=== PATIENT | male | born 1990 | race American Indian/Alaskan Native ===

== ENCOUNTER 2020-03-22 20:30 | Emergency (ER) | payer SELFPAY ==
[2020-03-23] MEDS ORDERED: ACETAMINOPHEN 325 MG TAB ONE ×2 (01:26→08:45)
[2020-03-23] MEDS ORDERED: HYDROmorphone 1 MG/1 ML INJ IV ONE ×2 (02:40→04:17)
[2020-03-23] MEDS ORDERED: ONDANSETRON 4 MG/2 ML INJ IV ONE (02:40)
[2020-03-23] MEDS ORDERED: ASPIRIN 325 MG TAB PO ONE (02:42)
[2020-03-23] MEDS ORDERED: HYDROGEN PEROXIDE 118 ML SOLUTION ONE (02:54)
--- NOTE | 2020-03-23 03:00 | Emergency Department Report ---
ED Extremity Problem HPI - General Chief complaint: Extremity Problem,Nontraumatic Stated complaint: RIGHT ARM PAIN/BLOOD CLOT AND HURT WHEN PEE Time Seen by Provider: 03/23/20 02:20 Source: patient, old records reviewed Mode of arrival: Ambulatory Limitations: No Limitations - History of Present Illness Initial comments: 29-year-old male with a past medical history of HIV, depression, anxiety, and recent admission here for prostatitis presents to the hospital complaining of continued rectal bleeding, rectal pain, dysuria, and 1 week of right arm pain where previous IV was placed during admission. Patient was admitted here March 04 to March 13 after having 2 weeks of hematochezia, difficulty urinating, severe abdominal pain, and rectal pain. Patient received CT abdomen pelvis as well as colonoscopy with rectal biopsy. CT abdomen pelvis showed rectal inflammation and an enlarged lymph node adjacent to the rectum and his biopsy report shows acute colitis with melanosis coli and negative herpes and CMV. GMS and syphillis is still pending as per discharge summary/note from 03/12. Patient now returns complaining of persistent and increased rectal bleeding. Persistent dysuria. And 1 week of right arm pain, tenderness, and swelling at the vein where previous IV was placed. Patient states he has been taking a spirin and ibuprofen intermittently as well as Percocet 5/325 mg. His pain has not been controlled. He was also prescribed oxycodone ER 20 mg but cannot find a pharmacy that will fill this medication. No complaints of fever. 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 Given high risk sexual behavior, this is most likely STD-associated proctitis, suspicion for lymphogranuloma venereum /Chlamydia or Gonorrhea. Other possibilities herpes type 2 proctitis and syphilitic proctitis, which is rare. S/p colonoscopy on 03/08/2020- findings rectal inflammation and purulence. Biopsy shows mild acute colitis, negative for granulomas, patchy pigment suggesting melanosis coli or lower GI bleed. CMV and HSV stains negative. #Suicidal ideation: Patient stating that "I wants to kill himself if the rectal pain is not better", "I have been thinking on killing myselft". Denies any SI currently. #HIV infection: Uncontrolled, last viral load> 10,000 copies. KQ5=[id number]. Patient is taking Biktarvy, reported missing his medication since admission. He was just started 2 months ago. #History of latent syphilis: incomplete treatment. Syphilis IgG +1:32. #Dysuria: Urinalysis negative. ?Urethritis ? Chlamydia Recommendations: -f/u biopsy stains - GMS and Spirochetes -per micro, [facility] does not process rectal tissue for gonorrhea and chlamydia PCR. Rectal swab was not done due to severe pain. -gonorrhea and chlamydia PCR in urine- pending -Continue ceftriaxone 2 g IV once a day -Continue doxycycline 100 mg PO BID -Continue ART biktarvy equivalent inpatient - emtricitavine/ tenofovir/dolutegravir -Anticipate to d/c once pain is under control hopefully , still severe, reque sting dilaudid for rectal pain - -Anticipate to d/c on doxycycline 100 mg po bid total 3 weeks until 03/26/2020. Received Penicillin benzathine 1.2 mU IM on 03/04 then 1.2 mU on 03/05 then 2.4 IU on 03/11 or 03/12 and needs last on 03/19 at his local [facility] or [facility] (educated multiple times about this) -f/u with [facility] in 2 weeks -pain management per hospitalist Okay to be discharged tomorrow if pain is under control. Patient continues to express his frustration about no having a definite diagnosis, stating that the hospital may have not done enough. I again educated him about everything we have done to get to the bottom of his rectal infection. I recommend to keep him during the weekend consider GI med re-evaluation on Sunday if pain continues to be severe, may consider to collect rectal swab for Rectal swab GC/Chlamydia, which has not been done due to severe pain. I also explained again I have fully treated him for all GC/chlamydia and syphilis. Dr. Gilbert will be covering the weekend, Dr. Lester will be rounding on Sunday. Patient states he was able to receive his last dose of penicillin for latent syphilis on 03/19 with [facility]. Patient's gonorrhea and Chlamydia tests ultimately came back negative however, this appears to be have obtained from the urine since patient was not tolerating rectal swab. As per ID note [facility] does not process rectal tissue for gonorrhea and chlamydia PCR. Patient received Rocephin while admitted as well as doxycycline which was continued upon discharge with plan for 3 total weeks of treatment. Patient states he has been compliant with his doxycycline. Patient's rectal biopsy stains for GMS and spirochetes were pending at disposition however, I do not see a result in the computer. As per patient's labs he was also HSV IgM antibody screen positive and HSV-2 specific antibody of 12.20 but rectal biopsy result were negative for herpes and cmv. Patient was supposed to follow-up with GI however, he was told that GI will be contacting him for an appointment. When he did not hear for them he contacted case management however, issue was not resolved an appointment/follow-up has not been scheduled Patient is also taking the prescribed Baclofen and Ansol as well as other medica tions prescribed for treatment upon recent discharge Pt apparently had verbal and physical conflicts with staff in the waiting room. - Related Data Home Medications Medication Instructions Recorded Confirmed Last Taken Bictegrav/Emtricit/Tenofov Ala 1 tab PO DAILY 03/04/20 03/05/20 03/03/20 17:00 [Biktarvy 50-200-25 mg (Nf)] Previous Rx's Medication Instructions Recorded Last Taken Type Baclofen [Lioresal] 5 mg PO TID #25 tablet 03/13/20 Unknown Rx Clobetasol 0.05% [Temovate] 1 applic TP BID #1 tube 03/13/20 Unknown Rx Docusate Sodium [Colace CAP] 100 mg PO BID #30 capsule 03/13/20 Unknown Rx Hydrocortisone 2.5% [Proctosol-Hc] 1 applic NH Q8H #1 tube 03/13/20 Unknown Rx Sennosides Tab [Senokot] 8.6 mg PO Q12HR #14 tablet 03/13/20 Unknown Rx oxyCODONE /ACETAMINOPHEN [Percocet 1 tab PO Q6H PRN #20 tablet 03/13/20 Unknown Rx 5/325 mg] oxyCODONE ER [oxyCONTIN ER] 20 mg PO 18 #20 tablet 03/13/20 Unknown Rx polyethylene glycoL 3350 [Miralax 17 gm PO QDAY #14 powd.pack 03/13/20 Unknown Rx 3350] Apixaban [Eliquis] 5 mg PO BID #30 tablet 03/23/20 Unknown Rx DOXYCYCLINE Hyclate [Vibramycin 100 mg PO BID #28 tab 03/23/20 Unknown Rx CAP] Oxycodone HCl/Acetaminophen 1 each PO Q6HR PRN #20 tablet 03/23/20 Unknown Rx [Percocet 10/325 mg] Allergies Allergy/AdvReac Type Severity Reaction Status Date / Time latex Allergy Hives Verified 03/03/20 19:42 ED Review of Systems ROS: Stated complaint: RIGHT ARM PAIN/BLOOD CLOT AND HURT WHEN PEE Other details as noted in HPI Comment: All other systems reviewed and negative ED Past Medical Hx - Past Medical History Previous Medical History?: Yes Hx Hypertension: No Hx Heart Attack/AMI: No Hx Deep Vein Thrombosis: No Hx Liver Disease: No Hx Renal Disease: No Hx Psychiatric Treatment: Yes (depression, anxiety) Hx HIV: Yes Additional medical history: herpes I,II, SYPHILLIS - Surgical History Past Surgical History?: Yes Hx Pacemaker: No Hx Internal Defibrillator: No Additional Surgical History: hemorrhoid sx ?2015 - Social History Smoking Status: Never Smoker Substance Use Type: None - Medications Home Medications: Home Medications Medication Instructions Recorded Confirmed Last Taken Type Bictegrav/Emtricit/Tenofov Ala 1 tab PO DAILY 03/04/20 03/05/20 03/03/20 17:00 History [Biktarvy 50-200-25 mg (Nf)] Baclofen [Lioresal] 5 mg PO TID #25 tablet 03/13/20 Unknown Rx Clobetasol 0.05% [Temovate] 1 applic TP BID #1 tube 03/13/20 Unknown Rx Docusate Sodium [Colace CAP] 100 mg PO BID #30 capsule 03/13/20 Unknown Rx Hydrocortisone 2.5% [Proctosol-Hc] 1 applic NH Q8H #1 tube 03/13/20 Unknown Rx Sennosides Tab [Senokot] 8.6 mg PO Q12HR #14 tablet 03/13/20 Unknown Rx oxyCODONE /ACETAMINOPHEN [Percocet 1 tab PO Q6H PRN #20 tablet 03/13/20 Unknown Rx 5/325 mg] oxyCODONE ER [oxyCONTIN ER] 20 mg PO 18 #20 tablet 03/13/20 Unknown Rx polyethylene glycoL 3350 [Miralax 17 gm PO QDAY #14 powd.pack 03/13/20 Unknown Rx 3350] Apixaban [Eliquis] 5 mg PO BID #30 tablet 03/23/20 Unknown Rx DOXYCYCLINE Hyclate [Vibramycin 100 mg PO BID #28 tab 03/23/20 Unknown Rx CAP] Oxycodone HCl/Acetaminophen 1 each PO Q6HR PRN #20 tablet 03/23/20 Unknown Rx [Percocet 10/325 mg] ED Physical Exam - General Limitations: No Limitations ED Course Vital Signs 03/22/20 03/22/20 03/23/20 20:48 21:26 04:51 Temperature 98.0 F 98 F Pulse Rate 98 H 92 H Respiratory 18 18 Rate Blood Pressure 122/71 122/71 134/77 Blood Pressure [Left] O2 Sat by Pulse 98 100 Oximetry 03/23/20 03/23/20 03/23/20 06:34 07:17 07:30 Temperature Pulse Rate 78 Respiratory 16 Rate Blood Pressure 125/75 125/75 Blood Pressure 134/77 [Left] O2 Sat by Pulse 98 98 Oximetry 03/23/20 03/23/20 03/23/20 07:45 08:00 10:26 Temperature Pulse Rate 78 Respiratory 18 Rate Blood Pressure 133/73 133/73 Blood Pressure 133/73 [Left] O2 Sat by Pulse 96 96 97 Oximetry - Consultations Consultation #1: 03/23/20 05:56 Dr Wallis GI doctor. She agrees that patient does not meet criteria at this time. Patient is not anemic or have evidence of leukocytosis or sepsis. Recommend patient follow-up with GI as outpatient 03/23/20 06:[address] Case hung with ID Dr[address] Tenorio. He is familiar with the patient. I informed him that GMS stains are spirochete stains are pending. He states GMS is a fungal stain. Results apparently are not available for review at this time. He recommends additional Rocephin 2 g IV and an extra 2 weeks course of doxycycline and follow-up with his infectious disease doctor. He also states it is very important for him to take his HIV medication ED Medical Decision Making - Lab Data Result diagrams: 03/23/20 Unknown 03/23/20 Unknown Lab Results 03/23/20 03/23/20 03/23/20 Range/Units Unknown Unknown Unknown WBC 7.2 (4.5-11.0) K/mm3 RBC 4.70 (3.65-5.03) M/mm3 Hgb 16.0 H (11.8-15.2) gm/dl Hct 45.6 (35.5-45.6) % MCV 97 H (84-94) fl MCH 34 H (28-32) pg MCHC 35 H (32-34) % RDW 12.8 L (13.2-15.2) % Plt Count 251 (140-440) K/mm3 Lymph % (Auto) 20.1 (13.4-35.0) % [place] % (Auto) 4.2 (0.0-7.3) % Eos % (Auto) 0.2 (0.0-4.3) % Baso % (Auto) 0.3 (0.0-1.8) % Lymph # 1.4 (1.2-5.4) K/mm3 [place] # 0.3 (0.0-0.8) K/mm3 Eos # 0.0 (0.0-0.4) K/mm3 Baso # 0.0 (0.0-0.1) K/mm3 Seg Neutrophils % 75.2 H (40.0-70.0) % Seg Neutrophils # 5.4 (1.8-7.7) K/mm3 PT 24.5 H (12.2-14.9) Sec. INR 2.15 H (0.87-1.13) APTT 80.0 H* (24.2-36.6) Sec. Sodium 137 (137-145) mmol/L Potassium 3.4 L (3.6-5.0) mmol/L Chloride 102.6 (98-107) mmol/L Carbon Dioxide 21 L (22-30) mmol/L Anion Gap 17 mmol/L BUN 10 (9-20) mg/dL Creatinine 0.8 (0.8-1.3) mg/dL Estimated GFR > 60 ml/min BUN/Creatinine Ratio 13 % Glucose 77 (75-100) mg/dL Calcium 8.0 L (8.4-10.2) mg/dL Magnesium (1.7-2.3) mg/dL 03/23/20 Range/Units Unknown WBC (4.5-11.0) K/mm3 RBC (3.65-5.03) M/mm3 Hgb (11.8-15.2) gm/dl Hct (35.5-45.6) % MCV (84-94) fl MCH (28-32) pg MCHC (32-34) % RDW (13.2-15.2) % Plt Count (140-440) K/mm3 Lymph % (Auto) (13.4-35.0) % [place] % (Auto) (0.0-7.3) % Eos % (Auto) (0.0-4.3) % Baso % (Auto) (0.0-1.8) % Lymph # (1.2-5.4) K/mm3 [place] # (0.0-0.8) K/mm3 Eos # (0.0-0.4) K/mm3 Baso # (0.0-0.1) K/mm3 Seg Neutrophils % (40.0-70.0) % Seg Neutrophils # (1.8-7.7) K/mm3 PT (12.2-14.9) Sec. INR (0.87-1.13) APTT (24.2-36.6) Sec. Sodium (137-145) mmol/L Potassium (3.6-5.0) mmol/L Chloride (98-107) mmol/L Carbon Dioxide (22-30) mmol/L Anion Gap mmol/L BUN (9-20) mg/dL Creatinine (0.8-1.3) mg/dL Estimated GFR ml/min BUN/Creatinine Ratio % Glucose (75-100) mg/dL Calcium (8.4-10.2) mg/dL Magnesium 2.30 (1.7-2.3) mg/dL - Radiology Data Radiology results: report reviewed DUPLEX DOPPLER UPPER EXTREMITY VENOUS, RIGHT INDICATION / CLINICAL INFORMATION: RIGHT ARM PAIN. TECHNIQUE: Duplex doppler imaging was performed through the veins of the right upper extremity using venous compression and other maneuvers. COMPARISON: None available. FINDINGS: RIGHT INTERNAL JUGULAR VEIN: Negative. RIGHT SUBCLAVIAN VEIN: Negative. RIGHT AXILLARY VEIN: Negative. RIGHT BRACHIAL VEIN: Acute thrombus. RIGHT FOREARM VEINS: Acute thrombus. RIGHT BASILIC VEIN (SUPERFICIAL): Negative. ADDITIONAL FINDINGS: None. IMPRESSION: 1. Positive for acute nonocclusive thrombus within the right brachial vein. 2. Positive for ac karly occlusive thrombus within the right cephalic vein. 3. Findings were discussed with Dr. Hidalgo by the supervisor rice milling at 9:12 AM. - Medical Decision Making Patient presents to the hospital with persistent rectal bleeding with diagnosis of proctitis. Patient complains of worsening bleeding but he does not have hypotension, tachycardia, or anemia. Patient has received treatment for multiple infections including gonorrhea, chlamydia, and syphilis. Patient also was recently started on HIV medications. Ultimately patient need to follow-up with GI doctor as outpatient as discussed with GI attending personal protection specialist. Patient will also need to follow-up with ID as outpatient. Case discussed with Dr. Tenorio who recommends addition of Rocephin 2 g IV and another 2 weeks of doxycycline. Patient appears to have a high pain tolerance as per medical record review dur ing admission patient was receiving Dilaudid 2 mg doses. He was discharged on Percocet 5/325 mg and oxycodone 20 mg extended release. Patient treated in the ED with Dilaudid and Zofran. Patient developed a mild rash and received Benadryl and Solu-Medrol as well. Patient main complaint of pain is his right arm and he has an area there suggestive of superficial thrombophlebitis. Upper extremity Doppler is not available in the evening. Patient held in the ED to obtain right arm Doppler this a.m. to rule out DVT. Patient signed out to oncoming provider Dr. Hidalgo to follow-up results. Patient will be prepped for discharge with medication prescriptions. Repeat PT/INR is pending Initial sample was inaccurate because to was not filled to the maximum line. Pt is not on anticoagulants Please see Dr Hidalgo note regarding course after signout and dispo pt with + right arm dvt d/cindy on eliquis pt had verbal conflicts with RN and MD Dr Hidalgo prior to d/c (as per chart review) Critical Care Time: No Critical care attestation.: If time is entered above; I have spent that time in minutes in the direct care of this critically ill patient, excluding procedure time. ED Disposition Clinical Impression: HIV (human immunodeficiency virus infection), Proctitis Deep vein thrombosis of right upper extremity Qualifiers: Affected thrombotic vein of extremity: brachial Chronicity: acute Qualified Code(s): I82.621 - Acute embolism and thrombosis of deep veins of right upper extremity Disposition: TO HOME OR SELFCARE Is pt being admited?: No Condition: Stable Instructions: Proctitis (ED), Deep Venous Thrombosis (ED) Additional Instructions: Take the medication as prescribed. Follow-up with your doctor or doctor/clinic provided. Call the numbers provided to schedule follow-up. Follow-up with your infectious disease clinic or the infectious disease doctor provided. Return if symptoms worsen as indicated by your discharge instructions. Prescriptions: Apixaban [Eliquis] 5 mg PO BID #30 tablet Oxycodone HCl/Acetaminophen [Percocet 10/325 mg] 1 each PO Q6HR PRN #20 tablet PRN Reason: Pain DOXYCYCLINE Hyclate [Vibramycin CAP] 100 mg PO BID #28 tab Referrals: MALLORY NIEVES MD [Staff Physician] - 3-5 Days (GI doctor) TK JESUS MD [Staff Physician] - 3-5 Days (Infectious disease.) JORGE CHO MD [Staff Physician] - 3-5 Days Time of Disposition: 10:25
[2020-03-23] MEDS ORDERED: diphenhydrAMINE 50 MG/ML VIAL IV ONE ×2 (04:17→04:39)
[2020-03-23 04:33] LABS: Basophils % (Auto) 0.3 % (0.0-1.8); Eosinophils % (Auto) 0.2 % (0.0-4.3); Hematocrit 45.6 % (35.5-45.6); Lymphocytes # (Auto) 1.4 K/mm3 (1.2-5.4); Lymphocytes % (Auto) 20.1 % (13.4-35.0); Mean Corpuscular HGB Conc 35 % (32-34); Mean Corpuscular Volume 97 fl (84-94); Monocytes # (Auto) 0.3 K/mm3 (0.0-0.8); Monocytes % (Auto) 4.2 % (0.0-7.3); Platelet Count 251 K/mm3 (140-440); Red Cell Distribution Width 12.8 % (13.2-15.2)
[2020-03-23] MEDS ORDERED: NEOMY 3.5 MG/BACIT 400 UNITS/POLY B 5000 UNITS/GM OINT PACKET TP ONE ×2 (04:39→07:13)
[2020-03-23] MEDS ORDERED: methylPREDNISolone Sod Succinate 125 MG/2 ML INJ IV ONE (04:39)
[2020-03-23 04:43] LABS: INR 2.15 (0.87-1.13)
[2020-03-23 04:52] LABS: BUN/Creatinine Ratio 13; Blood Urea Nitrogen 10 mg/dL (9-20); Hemolysis Index 28
[2020-03-23] MEDS ORDERED: POTASSIUM CHLORIDE ER 20 MEQ TAB PO ONE (05:17)
[2020-03-23] MEDS ORDERED: cefTRIAXone/NS 2 GM/100 ML 2 GM/100 ML BAG IV ONE (06:00)
[2020-03-23] MEDS ORDERED: HYDROGEN PEROXIDE 118 ML SOLUTION TP ONE (07:13)
[2020-03-23 07:14] LABS: INR 0.93 (0.87-1.13)
[2020-03-23 07:15] LABS: Partial Thromboplastin Time 24.6 Sec. (24.2-36.6)
[2020-03-23 07:25] LABS: Alanine Aminotransferase 35 units/L (7-56)
[2020-03-23 07:39] LABS: Bilirubin,Direct < 0.2 mg/dL (0-0.2)
[2020-03-23] MEDS: ACETAMINOPHEN 325 MG TAB PO ONE ×2 (07:45→08:45)
[2020-03-23 09:09] VITALS: BP 133/73
--- NOTE | 2020-03-23 09:30 | Emergency Department Report ---
Blank Doc - Documentation Documentation: The patient was very poorly cooperative with ultrasound. He had repeated reque sts for pain medication. Despite this the ultrasound was performed. Patient was found to be in no distress whatsoever. He was very persistent and demanding additional pain medication. However this was deemed inappropriate. The Doppler ultrasound showed a small basilic vein thrombosis and cephalic vein involvement. Thus there is some deep vein thrombosis. The patient was deemed appropriate and placed on Eliquis. His hemoglobin was noted to be 16. Obviously he has not had any substantial rectal bleeding recently. It was explained to him that this would not be a criteria for admission to the hospital. He is to follow-up as indicated. He states he does not have a primary care provider. He will be referred to Dr. House who is hematology oncology consultant.
--- NOTE | 2020-03-23 09:44 | Vascular Lab Report ---
DUPLEX DOPPLER UPPER EXTREMITY VENOUS, RIGHT INDICATION / CLINICAL INFORMATION: RIGHT ARM PAIN. TECHNIQUE: Duplex doppler imaging was performed through the veins of the right upper extremity using venous comp ression and other maneuvers. COMPARISON: None available. FINDINGS: RIGHT INTERNAL JUGULAR VEIN: Negative. RIGHT SUBCLAVIAN VEIN: Negative. RIGHT AXILLARY VEIN: Negative. RIGHT BRACHIAL VEIN: Acute thrombus. RIGHT FOREARM VEINS: Acute thrombus. RIGHT BASILIC VEIN (SUPERFICIAL): Negative. ADDITIONAL FINDINGS: None. IMPRESSION: 1. Positive for acute nonocclusive thrombus within the right brachial vein. 2. Positive for acute occlusive thrombus within the right cephalic vein. 3. Findings were discussed with Dr. Hidalgo by the riding teacher at 9:12 AM. Signer Name: Alfonso Sheikh MD Signed: 03/23/2020 9:40 AM Workstation Name: [id number]
== END 2020-03-23 10:27 | disposition home or self-care (01) ==
LOC: ED 20:30
DX: I82.621 Acute embolism and thrombosis of deep veins of right upper extremity (principal); K62.89 Other specified diseases of anus and rectum; F41.9 Anxiety disorder, unspecified; F32.9 Major depressive disorder, single episode, unspecified; Z79.899 Other long term (current) drug therapy; Z98.890 Other specified postprocedural states; Z91.040 Latex allergy status; Z21 Asymptomatic human immunodeficiency virus [HIV] infection status
CPT/HCPCS: 36415; 80048; 80076; 83735; 85025; 85610; 85730; 93971; 96365; 96375; 96376; 99284; J0696; J1170; J1200; J2405; J2930; A6250